=== PATIENT | female | born 1965 | race Two or more races ===

== ENCOUNTER 2021-04-27 14:01 | Outpatient (REF) | payer MEDICARE, MEDICAID, SELFPAY ==
--- NOTE | ~2021-04-27 | MM_ITS ---
EXAMINATION: BONE DENSITOMETRY CLINICAL INDICATION: Menopausal. COMPARISON: None (current study represents initial baseline exam). TECHNIQUE: Using a [employer] DXA System (software version: 13.1) manufactured by [employer], dual-energy x-ray absorptiometry was performed of the lumbar spine and left hip. The images are of good technical quality. Summary results are attached. FINDINGS: AP SPINE L1-L4: BMD 1.013 g/cm2, Z-score -1.0, T-score -1.4, osteopenia. LEFT FEMUR, NECK: BMD 0.924 g/cm2, Z-score -0.1, T-score -0.8, normal. LEFT FEMUR, TOTAL: BMD 0.893 g/cm2, Z-score -0.6, T-score -0.9, normal. IDENTIFIED RISK FACTORS: Menopause, hysterectomy, bilateral oophorectomy, tobacco use (current smoker). HISTORY OF FRACTURE: None listed. MEDICATIONS: None listed. MM/XR DEXA axial skeleton IMPRESSION: 1. DIAGNOSIS: Osteopenia based on the lowest T-score value of -1.4 in the lumbar spine applying World Health Organization criteria. 2. 10-YEAR FRACTURE RISK PREDICTION, FRAX: Major osteoporotic fracture (clinical spine, forearm, hip or shoulder) 3.2%. Hip fracture 0.1%. 3. Treatment Recommendations: NOF guidelines recommend consideration for treatment in postmenopausal women and men age 50 and older presenting with the following: -A hip or vertebral (clinical or morphometric) fracture. -T-score less than or equal to -2.5 at the femoral neck or spine after appropriate evaluation to exclude secondary causes. -Low bone mass at the hip or spine and a 10-year fracture probability by FRAX of greater than or equal to 3% for hip fracture or greater than or equal to 20% for major osteoporotic fracture based on the [place] adapted WHO algorithm. 4. Other Recommendations: All treatment decisions require clinical judgment and consideration of individual patient factors, including patient preferences, comorbidities, previous drug use, risk factors not captured in the FRAX model (e.g. frailty, falls, vitamin D deficiency, increased bone turnover, interval significant decline in bone density) and possible under or overestimation of fracture risk by FRAX. Additional medical evaluation for secondary cause of low bone mineral density may be appropriate. FUTURE SCAN RECOMMENDATION: People with diagnosed cases of osteoporosis or at high risk for fracture should have regular bone mineral density tests. For patients eligible for Medicare, routine testing is allowed once every 2 years. The testing frequency can be increased to one year for patients who have rapidly progressing disease, those who are receiving or discontinuing medical therapy to restore bone mass, or have additional risk factors.
== END 2021-04-27 14:02 | disposition home or self-care (01) ==
LOC: HO.MAMMO 14:01
PROVIDERS: Visit Provider Pediatrics
DX: Z13.820 Encounter for screening for osteoporosis (principal); M85.80 Other specified disorders of bone density and structure, unspecified site; F17.200 Nicotine dependence, unspecified, uncomplicated; Z78.0 Asymptomatic menopausal state; Z90.722 Acquired absence of ovaries, bilateral; Z98.890 Other specified postprocedural states
CPT/HCPCS: 77080

== ENCOUNTER 2024-03-13 10:09 | Outpatient (REF) | payer MEDICARE, MEDICAID, SELFPAY ==
[2024-03-13 13:53] LABS: MANUAL DIFF FLAG NO
[2024-03-13 14:04] LABS: Basophils Percent Auto 0.4 % (0-2); Eosinophils Absolute Auto 0.1 X10*3/uL (0.0-0.4); Eosinophils Percent Auto 1.7 % (0-4); Hematocrit 41.5 % (37.0-47.0); Hemoglobin 13.4 g/dl (12.0-16.0); Imm Gran Abs Auto 0.01 X10*3/uL (0.00-0.03); Imm Gran Pct Auto 0.2 % (0.0-0.4); Lymphocytes Absolute Auto 2.5 X10*3/uL (1.2-4.9); Lymphocytes Percent Auto 53.4 % (20-40); Mean Corpuscular HGB Conc 32.3 g/dl (31.0-35.0); Mean Corpuscular Hemoglobin 29.3 pg (27.0-33.0); Mean Corpuscular Volume 90.6 fL (80.0-98.0); Mean Platelet Volume 10.7 fL (9.4-12.3); Monocytes Absolute Auto 0.5 X10*3/uL (0.1-1.2); Monocytes Percent Auto 10.3 % (2-11); Neutrophils Absolute Auto 1.6 x10*3/uL (2.0-8.3); Platelet Count 241 X10*3/uL (160-400); Red Blood Count 4.58 X10*6/uL (4.20-5.50); White Blood Count 4.6 X10*3/uL (4.8-10.8)
[2024-03-13 14:36] LABS: Alanine Aminotransferase 15 U/L (0-31); Albumin Level 3.9 g/dL (3.5-5.0); Alkaline Phosphatase 72 U/L (39-117); Anion Gap 11 (12-20); Aspartate Amino Transferase 14 U/L (5-31); Bilirubin Direct 0.1 mg/dL (0.0-0.5); Bilirubin Total 0.3 mg/dL (0.0-1.0); Blood Urea Nitrogen 24 mg/dL (9-16); Calcium 9.5 mg/dL (8.4-10.2); Carbon Dioxide 25 mmol/L (22-29); Chloride 108 mmol/L (96-108); Cholesterol 169 mg/dL (<200); Estimated Glomerular Filt Rate > 60; Glucose Fasting 103 mg/dL (60-99); HDL Cholesterol 29 mg/dL (>40); LDL Cholesterol Calculated 115 mg/dL (<100); Potassium 4.2 mmol/L (3.3-5.1); Sodium 140 mmol/L (135-145); TSH reflex Free T4 1.74 uIU/mL (0.32-4.0); Total Protein 7.2 g/dL (6.5-8.0); Triglycerides 129 mg/dL (<150); Vitamin D 25-OH Total 26.5 ng/mL (>30)
[2024-03-13 14:48] LABS: Creatinine Urine 118.76 mg/dL; Microalbum/Creatinine Ratio Ur 9.2 ug/mg cr (<30)
== END 2024-03-13 10:10 | disposition home or self-care (01) ==
LOC: HO.CHCLDS 10:09
PROVIDERS: Visit Provider Pediatrics
DX: E55.9 Vitamin D deficiency, unspecified (principal); L65.9 Nonscarring hair loss, unspecified; I10 Essential (primary) hypertension; Z79.811 Long term (current) use of aromatase inhibitors
CPT/HCPCS: 36415; 80048; 80061; 80076; 82043; 82306; 82570; 84443; 85025

== ENCOUNTER 2025-05-11 10:39 | Outpatient (REF) | payer MEDICARE, MEDICAID, SELFPAY ==
--- OUTSIDE RECORDS SUMMARY | 2025-05-06 14:15 | XMS_ITS | Encounter Summary ---
Author Organization [employer] Address [address] [place] [address] Care Team Providers Care Compressor Station Engineer Chief Name Role Phone Christal Galeana MD Primary Care Provider [phone] Reason for Referral * Consultation (Urgent) - Authorized Specialty Diagnoses / Procedures Referred By Contsaida t Referred To Contact Gastroenterology Diagnoses Carcinoma of colon (CMS/HCC) (HCC) Christal Galeana MD [address] [place] [address] Phone: tel: fax: [facility] [address] [place], [place] Phone: tel: fax: Referral ID Status Reason Start Date Expiration Date Visits Requested Visits Authorized [id number] Authorized Specialty Services Required 05/06/2025 05/06/2026 1 1 Scheduling Instructions [facility] please, treated x colon cancer there in 2009 Encounter Details Date Type Department Care Team (Late st Contact Info) Description 05/06/2025 2:15 PM EDT Office Visit [facility] [address] [place], [place] [phone] Christal Galeana MD [address], [place] [phone] Essential hypertension (Primary Dx); Heart failure with reduced ejection fraction, NYHA class III (CMS/HCC); Malignant neoplasm of right breast in female, estrogen receptor positive, unspecified site of breast (CMS/HCC); Carcinoma of colon (CMS/HCC); Dietary counseling; Exercise counseling; Primary insomnia; Mild intermittent asthma without complication; Encounter for immunization Social History Tobacco Use Types Packs/Day Years Used Date Smoking Tobacco: Every Day Cigarettes 0.3 47.7 Started: 08/12/1977 Passive Smoke Exposure: Current Smokeless Tobacco: Never Tobacco Cessation:Ready to Q uit: Not Asked; Counseling Given: Not Answered Alcohol Use Standard Drinks/Week Comments Not Currently 0 (1 standard drink = 0.6 oz pur e alcohol) Depression Answer Date Recorded Patient Health Questionnaire-9 Score 12 05/06/2025 Patient Health Questionnaire-9 Score 12 05/06/2025 Last PHQ-9: Questionnaire Data Not on file 0 05/06/2025 Housing Stability Answer Date Recorded What is your housing situation today? I have channingrhonda edmondson 05/06/[address] you li ve. Do you have problems with any of the following? None of the above 05/06/2025 Food Insecurity Answer Date Recorded Within the past 12 months, y ou worried that your food would run out before you got money to buy more: Often true 05/06/2025 Within the past 12 months,th e food you bought just didn't last and you didn't have enough money to get more: Often true Transportation Answer Date Recorded In the past 12 months, has l ack of transportation kept you from medical appts, meetings, work or from getting things needed for daily living? No 05/06/2025 Utilities Answer Date Recorded In the past 12 months, has t he electric, gas, oil or water company threatened to shut off services in your home? Yes 05/06/2025 Depression Answer Date Recorded Patient Health Questionnaire-2 Score 4 05/06/2025 Internet Access Answer Date Recorded Internet Access Q1 Yes 05/06/2025 Internet Access Q2 Not on file 05/06/2025 Comments No Sex and Gender Information Value Date Recorded Sex Assigned at Female 06/11/2022 10:35 AM EDT Legal Sex Female 10:35 AM EDT Gender Identity Female 06/11/2022 10:35 AM EDT Sexual Orientation Straight 06/11/2022 10 :35 AM EDT documented as of this encounter Last Filed Vital Signs Vital Sign Reading Time Taken Comments Blood Pressure 100/72 05/06/2025 2:17 PM EDT Pulse 80 05/06/2025 2:17 PM EDT Temperature 36.7 C (98 F) 05/06/2025 2:17 PM EDT Respiratory Rate 20 05/06/2025 2:17 PM EDT Oxygen Saturation - - Inhaled Oxygen Concentration - - Weight 85.7 kg (189 lb) 05/06/2025 2:17 PM EDT Height 158.8 cm (5' 2.5 ) 05/06/2025 2:17 PM EDT Body Mass Index 34.02 05/06/2025 2:17 PM EDT documented in this encounter Functional Status * Over the past 2 weeks, how often have you been bothered by any of the following problems? Question Answer Date of Assessment Author Patient Health Questionnaire -2 Score 4 05/06/2025 2:38 PM EDT Estuardo Crowley MA * Little interest or pleasure in doing things Answer Date of Assessment Author Several days 05/06/2025 2:38 PM EDT Jamaica Crowley [place] * Feeling down, depressed, or hopeless Answer Date of Assessment Author Nearly every day 05/06/2025 2:38 PM EDT Jamaica Mcclellan [place] * Trouble falling or staying asleep, or sleeping too much Answer Date of Assessment Author Nearly every day 05/06/2025 2:38 PM EDT Jamaica Mcclellan [place] * Feeling tired or having little energy Answer Date of Assessment Author Nearly every day 05/06/2025 2:38 PM EDT Jamaica Mcclellan MA * Poor appetite or overeating Answer Date of Assessment Author Several days 05/06/2025 2:38 PM EDT Jamaica Crowley MA * Feeling bad about yourself - or that you are a failure or have let yourself or your family down Answer Date of Assessment Author Several days 05/06/2025 2:38 PM EDT Jamaica Crowley MA * Trouble concentrating on things, such as reading the newspaper or watching television Answer Date of Assessment Author Not at all 05/06/2025 2:38 PM EDT Jamaica Crowley MA * Moving or speaking so slowly that other people could have noticed? Or the opposite - being so fidgety or restless that you have been moving around a lot more than usual. Answer Date of Assessment Author Not at all 05/06/2025 2:38 PM EDT Jamaica Crowley MA * Thoughts that you would be better off or hurting yourself in some way Answer Date of Assessment Author Not at all 05/06/2025 2:38 PM EDT Jamaica Crowley MA * Patient Health Questionnaire-9 Score Answer Date of Assessment Author 12 05/06/2025 2:38 PM EDT Jamaica Crowley MA * How difficult have these problems made it for you to do your work, take care of things at home, or get along with other people? Answer Date of Assessment Author Somewhat difficult 05/06/2025 2:38 PM EDT Jamaica Treviño MA documented as of this encounter Progress Notes * Christal Galeana MD - 05/06/2025 2:15 PM EDT Subjective Patient ID: Gaby Felix is a 60 y.o. female who presents for reconnection to care. Gaby is a 60 y/o female patient of ours with past history of colon and breast cancer both treated and in remission. She is here for recommendation to care. She has been seeing orthopedics for multiple complaints of shoulders and knee arthralgias. Has no other complaints today. She is overdue for fasting labs. She still smokes tobacco but is interested in quitting. Review of Systems Constitutional: Negative for activity change, chills, fever and unexpected weight change. Respiratory: Negative for cough, shortness of breath and wheezing. Cardiovascular: Negative for chest pain, palpitations and leg swelling. Gastrointestinal: Negative for abdominal pain and blood in stool. Endocrine: Negative for polydipsia and polyuria. Genitourinary: Negative for decreased urine volume, difficulty urinating, dysuria and hematuria. Musculoskeletal: Negative for arthralgias and gait problem. Skin: Negative for color change and rash. Neurological: Negative for dizziness and headaches. Hematological: Negative for adenopathy. Psychiatric/Behavioral: Negative for dysphoric mood, hallucinations, sleep disturbance and suicidalideas. The patient is not nervous/anxious. Objective BP 100/72 (BP Location: Left arm, Patient Position: Sitting, BP Cuff Size: Adult) Pulse80 Temp 98 ??F (36.7 ??C) (Oral) Resp 20 Ht 5' 2.5 (1.588 m) Wt 189 lb (85.7 kg) LMP (LMP Unknown) BMI 34.02 kg/m?? Physical Exam Vitals reviewed. Constitutional: Appearance: Normal appearance. She is not ill-appearing. HENT: Mouth/Throat: Mouth: Mucous membranes are moist. Eyes: Conjunctiva/sclera: Conjunctivae normal. Pupils: Pupils are equal, round, and reactive to light. Cardiovascular: Rate and Rhythm: Normal rate and regular rhythm. Heart sounds: Normal heart sounds. Pulmonary: Effort: Pulmonary effort is normal. Breath sounds: Normal breath sounds. Abdominal: Tenderness: There is no abdominal tenderness. Musculoskeletal: Right lower leg: No edema. Left lower leg: No edema. Neurological: Mental Status: She is alert and oriented to person, place, and time. Mental status is at baseline. Psychiatric: Mood and Affect: Mood normal. Behavior: Behavior normal. Thought Content: Thought content normal. Judgment: Judgment normal. Assessment/Plan Diagnoses and all orders for this visit: Essential hypertension Comments: BP very well-controlled on meds prescribed by cardiology. Follow-up yearly as planned. No changes done today patient congratulated. Orders: - Albumin, Random Urine W/Creatinine; Future - CBC auto differential; Future - Basic Metabolic Panel, Fasting; Future - Hepatic Function Panel; Future - Vitamin D, 25-Hydroxy, Total, Immunoassay; Future - TSH W/Reflex to FT4; Future - Lipid Panel, Standard; Future - Vitamin B12/Folate, Serum Panel; Future Heart failure with reduced ejection fraction, NYHA class III (CMS/HCC) Comments: Patient echocardiogram is up-to-date sees cardiology at least once a year if not every 6 months. Orders: - Albumin, Random Urine W/Creatinine; Future - CBC auto differential; Future - Basic Metabolic Panel, Fasting; Future - Hepatic Function Panel; Future - Vitamin D, 25-Hydroxy, Total, Immunoassay; Future - TSH W/Reflex to FT4; Future - Lipid Panel, Standard; Future - Vitamin B12/Folate, Serum Panel; Future Malignant neoplasm of right breast in female, estrogen receptor positive, unspecified site of breast (CMS/HCC) Comments: Patient still on tamoxifen and followed at [facility] oncology. In remission. No imaging study neededfor screening due to mastectomy history. Orders: - Albumin, Random Urine W/Creatinine; Future - CBC auto differential; Future - Basic Metabolic Panel, Fasting; Future - Hepatic Function Panel; Future - Vitamin D, 25-Hydroxy, Total, Immunoassay; Future - TSH W/Reflex to FT4; Future - Lipid Panel, Standard; Future - Vitamin B12/Folate, Serum Panel; Future Carcinoma of colon (CMS/HCC) Comments: Patient has GI follow-up coming up. She is up-to-date with colonoscopy due to her colon cancer history. Orders: - Albumin, Random Urine W/Creatinine; Future - CBC auto differential; Future - Basic Metabolic Panel, Fasting; Future - Hepatic Function Panel; Future - Vitamin D, 25-Hydroxy, Total, Immunoassay; Future - TSH W/Reflex to FT4; Future - Lipid Panel, Standard; Future - Vitamin B12/Folate, Serum Panel; Future - Referral to Gastroenterology; Future Dietary counseling Exercise counseling Primary insomnia Mild intermittent asthma without complication Comments: Refilled her asthma meds. Patient still smokes tobacco. Agrees to try Chantix generic follow-up in 3 months with me given. Orders: - albuterol 108 (90 Base) MCG/ACT inhaler; Inhale 2 puffs every 4 (four) hours if needed for wheezing. Encounter for immunization Comments: PCV 20 vaccine given today declined flu vaccine. Orders: - PCV-20 VACCINE 6 wks + Other orders - varenicline (Chantix) 1 MG tablet; Take 0.5 tablets (0.5 mg) by mouth 2 times daily. - traZODone (Desyrel) 50 MG tablet; Take 1 tablet (50 mg) by mouth at bedtime. documented in this encounter Plan of Treatment Upcoming Encounters Date Type Department Care Team (Late st Contact Info) Description 06/02/2025 9:30 AM EDT Office Visit [facility] [address] [place] [address] Adam Weiss Scheduled Orders Name Type Priority Associated Diagnoses Orde r Schedule Albumin, Random Urine W/Creatinine Lab Routine Essential hypertension Heart failure with reduced ejection fraction, NYHA class III (CMS/HCC) Malignant neoplasm of right breast in female, estrogen receptor positive, unspecified site of breast (CMS/HCC) Carcinoma of colon (CMS/HCC) Expected: 05/06/2025 (Approximate), Expires: 05/06/2026 CBC auto differential Lab Routine Essential hypertension Heart failure with reduced ejection fraction, NYHA class III (CMS/HCC) Malignant neoplasm of right breast in female, estrogen receptor positive, unspecified site of breast (CMS/HCC) Carcinoma of colon (CMS/HCC) Expected: 05/06/2025 (Approximate), Expires: 05/06/2026 Basic Metabolic Panel, Fasting Lab Routine Essential hypertension Heart failure with reduced ejection fraction, NYHA class III (CMS/HCC) Malignant neoplasm of right breast in female, estrogen receptor positive, unspecified site of breast (CMS/HCC) Carcinoma of colon (CMS/HCC) Expected: 05/06/2025 (Approximate), Expires: 05/06/2026 Hepatic Function Panel Lab Routine Essential hypertension Heart failure with reduced ejection fraction, NYHA class III (CMS/HCC) Malignant neoplasm of right breast in female, estrogen receptor positive, unspecified site of breast (CMS/HCC) Carcinoma of colon (CMS/HCC) Expected: 05/06/2025 (Approximate), Expires: 05/06/2026 Vitamin D, 25-Hydroxy, Total, Immunoassay Lab Routine Essential hypertension Heart failure with reduced ejection fraction, NYHA class III (CMS/HCC) Malignant neoplasm of right breast in female, estrogen receptor positive, unspecified site of breast (CMS/HCC) Carcinoma of colon (CMS/HCC) Expected: 05/06/2025 (Approximate), Expires: 05/06/2026 TSH W/Reflex to FT4 Lab Routine Essential hypertension Heart failure with reduced ejection fraction, NYHA class III (CMS/HCC) Malignant neoplasm of right breast in female, estrogen receptor positive, unspecified site of breast (CMS/HCC) Carcinoma of colon (CMS/HCC) Expected: 05/06/2025 (Approximate), Expires: 05/06/2026 Lipid Panel, Standard Lab Routine Essential hypertension Heart failure with reduced ejection fraction, NYHA class III (CMS/HCC) Malignant neoplasm of right breast in female, estrogen receptor positive, unspecified site of breast (CMS/HCC) Carcinoma of colon (CMS/HCC) Expected: 05/06/2025 (Approximate), Expires: 05/06/2026 Vitamin B12/Folate, Serum Panel Lab Routine Essential hypertension Heart failure with reduced ejection fraction, NYHA class III (CMS/HCC) Malignant neoplasm of right breast in female, estrogen receptor positive, unspecified site of breast (CMS/HCC) Carcinoma of colon (CMS/HCC) Expected: 05/06/2025, Expires: 05/06/2026 Scheduled Referrals Name Type Priority Associated Diagnoses Order Schedule Referral to Gastroenterology Outpatient Referral Urgent Carcinoma of colon (CMS/HCC) Expected: 05/06/2025 (Approximate), Expires: 05/06/2026 documented as of this encounter Visit Diagnoses Diagnosis Essential hypertension- Primary Unspecified essential hypertension Heart failure with reduced ejection fraction, NYHA class III (HCC) Malignant neoplasm of right breast in female, estrogen receptor positive, unspecified site of breast (CMS/HCC) (HCC) Carcinoma of colon (CMS/HCC) (HCC) Malignant neoplasm of colon, unspecified site Dietary counseling Dietary surveillance and counseling Exercise counseling Primary insomnia Persistent disorder of initiating or maintaining sleep Mild intermittent asthma without complication Encounter for immunization documented in this encounter Additional Health Concerns Assessment Noted Time PHQ-9 Depression Total Score: 12 025 2:38 PM EDT documented as of this encounter Care Teams Compressor Station Engineer Chief Relationship Specialty Start Date End Date Christal Galeana MD [address] [place] [id number] PCP - General Family Medicine 02/16/21 documented as of this encounter
--- OUTSIDE RECORDS SUMMARY | 2025-05-10 09:45 | XMS_ITS | Encounter Summary ---
Author Organization [facility] Address [address] [place] [address] Care Team Providers Care Business Intelligence Reporting Analyst Name Role Phone Jonas Miller MD Primary Care Provider [phone] Reason for Referral * Orthopedic (Routine) - Authorized Specialty Diagnoses / Procedures Referred By [place] hunt Referred To Contact Orthopedic Surgery / Orthopaedic Surgery Diagnoses Nontraumatic incomplete tear of left rotator cuff Procedures L Inj/Asp: L subacromial bursa Oscar Rowland MD [address] [place] [address] Phone: tel: fax: Referral ID Status Reason Start Date Expiration Date V isits Requested Visits Authorized [id number] Authorized 05/10/2025 05/10/2026 1 1 Reason for Visit * Reason Comments Follow-up Left shoulder pain Encounter Details Date Type Department Care Team (Latest Contact Info) Description 05/10/2025 9:45 AM EDT Office Visit Orthopedic Surgery - [place] [id number] [phone] Oscar Rowland MD [address] [place] [address] Nontraumatic incomplete tear of left rotator cuff (Primary Dx) Social History Tobacco Use Types Packs/Day Years Used Date Smoking Tobacco: Never Assessed Comments Unknown Sex and Gender Information Value Date Recorded Sex Assigned at Not on file Legal Sex Female 9:01 AM EST Gender Identity Not on file Sexual Orientation Not on file documented as of this encounter Ordered Prescriptions Prescription Sig Dispense Quantity Refills Last Filled Start Date End Date diclofenac (VOLTAREN) 75 mg EC tablet Take 1 tablet (75 mg total) by mouth 2 (two) times a day. Do not crush, chew, or split. 60 each 11 05/10/2025 05/10/2026 documented in this encounter Progress Notes * Oscar Rowland MD - 05/10/2025 9:45 AM EDTAssociated Order(s): L Inj/Asp: L subacromial bursa Post-Procedure Diagnose(s): Nontraumatic incomplete tear of left rotator cuff Date: May 10, 2025 Diagnosis: Left partial rotator cuff tear diagnosed in 2019 Last seen: 12/21/24 (underwent subacromial CSI) Declined chemical engineering intern, daughter assists in translation History of Present Illness The patient is a 60-year-old female RHD who presents for a follow-up regarding her left shoulder pain. She has been receiving injections for her left shoulder pain, which typically provide relief for approximately a year. However, the injection she received in 12/2024 did not alleviate her pain. She has been undergoing physical therapy, but it has only provided temporary relief. Her shoulder function is currently at 25% of its normal capacity, and she avoids moving it excessively due to the pain. She has been using patches and sprays for pain management, but these have not been effective. She does not take ibuprofen, Tylenol, or Aleve due to her existing medication regimen. She is interested in trying Aleve and is considering another injection to manage her pain. She is also contemplating res uming diclofenac or Voltaren, as they have been beneficial in the past. She experiences a cracking sensation when she moves her arm. She recalls a fall from her childhood that did not result in a fracture, but she has been able to crack her joints since then. She is supposed to be doing therapy for her knee pain. Left shoulder SANE score is 25 Objective Focused Exam: LUE AROM FF/abduction/ER/IR: 150/100/45/Ilium PROM FF 170 weak with 4+/5 rotator cuff strength testing with resisted ER at 0 degrees of abduction Supraspinatus: positive Domenica's Test Subscapularis: negative Belly Press Impingement: positive Neer's Test positive Hawkin's Test AC Joint: no TTP Biceps: negative Yergason's test Imaging: No new imaging MRI of the left shoulder obtained 06/04/2020 demonstrated a partial-thickness articular sided supraspinatus tear no full-thickness rotator cuff tear, biceps tendon is within the bicipital groove and no significant degenerative changes, there are cystic changes in the humeral head at the level of the 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 Unfortunately she did not have a significant response to her previous subacromial corticosteroid injection and physical therapy. Thispreviously did improve her symptoms for longer periods of time.. I again discussed her diagnosis ofa partial rotator cuff tearing from MRIs in 2019 and I discussed that she may have had progression of this tear. I again reviewed operative and nonoperative treatment. Nonop treatment involves symptomatic management with nonsteroidal anti- inflammatory medication physical therapy. This may be associate with the risk for progression of a tear and persistent or worsening symptoms with shoulder pain and weakness.. I also discussed risk and benefits of corticosteroid i njections. Corticosteroid injections reduce inflammation and improve symptoms but do not heal rotator cuff tear and can have a likely time and dose-dependent effect on increasing complications such as infection and retear of the rotator cuff if given before rotator cuff repair rotator cuff. I explained to her operative treatment would involve likely arthroscopy and repair, would have the benefit of restoring her rotator cuff insertion but has the risks of surgery and extensive postoperative recovery, and may have risk of a retear. I explained I would recommend an updated MRI for her if we were to consider operative treatment. She voiced understanding of her diagnosis and the risks and benefits of operative and nonoperative treatment. Says she is not interested in surgery I would like to have continued trial of nonoperative treatment. She elected undergo repeat subacromial corticosteroidinjection, I also prescribed her diclofenac which had helped her symptoms previously. She can follow-up as needed for new worsening or persistent symptoms. Plan: Left shoulder partial rotator cuff tear with persistent pain - Repeat subacromial corticosteroid injection - May continue with physical therapy with rotator cuff strengthening - Follow-up as needed for any worsening or persistent symptoms L Inj/Asp: L subacromial bursa Indications: pain Details: 22 G needle, posterior approach Medications: 40 mg triamcinolone acetonide 40 mg/mL Outcome: tolerated well, no immediate complications Site was prepped in standard fashion using alcohol swab, sterile technique was used to perform the injection, the patient tolerated the procedure well and a band-aid dressing was applied Informed Consent: Site: Left subacromial Laterality: Left Relevant images/test results available and reviewed: yes Health status cleared: Yes Procedure/treatment, purpose, treatment alternatives, risks/potential complications and benefits explained: yes Risk/complications/benefits details: Risk/complications/benefits details: Risks and benefits of corticosteroid injection were discussed, including risk of pain, bleeding, infection, tissue attenuation, tendon rupture, changes in skin color, and injury to surrounding structures such as arteries, veins and nerves. We also discussed the patient may develop worsening pain for a few days before having improvement in their symptoms. Patient questions answered: yes Patient agrees, verbalizes understanding, and wants to proceed: yes Consent given by: Patient Informed consent discussion completed by Physician/VICKIE with patient: Verbal Pre-procedure timeout performed: yes I have obtained verbal consent from Gaby Luana prior to the recording. I have advised Gaby Randolphsallo that she may refuse the recording and require the recording to be turned off at any time. Oscar Rowland MD documented in this encounter Plan of Treatment Not on file documented as of this encounter Goals Goal Patient Goal Type Associated Problems Recent Progress Patient-Stated? Author OT goals 6 visits General On track( 025 2:20 PM EDT) No Margarita Lowe OT Note: 1> Pt will demo L shldr horiz add at least 20 to reach R axilla when bathing 01/19/25 Met 2. Pt will demo L granite polisher strength to at least 30# (vs 23# init, vs 50# on R) 02/15/25 MET 3. Pt will return demo approp HEP w/ progressions 02/15/25 MET 4> Pt will trial bed positioing techniques to lessen reports of RUE pain in supine bed 01/19/25 Met documented as of this encounter Procedures Procedure Name Priority Date/Time Associated Diagnosis Comments IA ARTHROCENTESIS/ASPI RATION/INJECTION MAJOR JOINT/BURSA W/O U/S GUIDANCE Routine 05/10/2025 9:45 AM EDT Nontraumatic incomplete tear of left rotator cuff documented in this encounter Results * IA ARTHROCENTESIS/ASPIRATION/INJECTION MAJOR JOINT/BURSA W/O U/S GUIDANCE (05/10/2025 9:45 AM EDT) Oscar Branham MD - 05/10/2025 9:45 AM EDT Oscar Rowland MD 05/10/2025 1:25 PM L Inj/Asp: L subacromial bursa Indications: pain Details: 22 G needle, posterior approach Medications: 40 mg triamcinolone acetonide 40 mg/mL Outcome: tolerated well, no immediate complications Site was prepped in standard fashion using alcohol swab, sterile technique was used to perform the injection, the patient tolerated the procedure well and a band-aid dressing was applied Informed Consent: Site: Left subacromial Laterality: Left Relevant images/test results available and reviewed: yes Health status cleared: Yes Procedure/treatment, purpose, treatment alternatives, risks/potential complications and benefits explained: yes Risk/complications/benefits details: Risk/complications/benefits details: Risks and benefits of corticosteroid injection were discussed, including risk of pain, bleeding, infection, tissue attenuation, tendon rupture, changes in skin color, and injury to surrounding structures such as arteries, veins and nerves. We also discussed the patient may develop worsening pain for a few days before having improvement in their symptoms. Patient questions answered: yes Patient agrees, verbalizes understanding, and wants to proceed: yes Consent given by: Patient Informed consent discussion completed by Physician/VICKIE with patient: Verbal Pre-procedure timeout performed: yes us Oscar Rowland MD IN CLINIC/BEDSIDE ORDERABLES Fin al Result documented in this encounter Visit Diagnoses Diagnosis Nontraumatic incomplete tear of left rotator cuff- Primary documented in this encounter Administered Medications Inactive Administered Medications - up to 3 most recent administrations Medication Order MAR Action Action Date Dose Rate Site triamcinolone acetonide (KENALOG-40) 40 mg/mL injection 40 mg 40 mg, Once PRN Procedure, Starting on Sat05/10/25 at 0945, For 1 doseIndications:Nontraumatic incomplete tear of left rotator cuff Given 05/10/2025 9:45 AM EDT 40 mg documented in this encounter Discontinued Medications Medication Sig Discontinue Reason Start Date End Da te diclofenac (VOLTAREN) 75 mg EC tablet TAKE 1 TABLET BY MOUTH TWICE DAILY FOR 14 DAYS. STOP IF ANY NAUSEA, VOMITING, UPSET STOMACH, CONSTIPTAION OR DIARRHEA AND NOTIFY OFFICE 05/26/2024 05/10/2025 documented as of this encounter Care Teams Business Intelligence Reporting Analyst Relationship Specialty Start Date End Date Jonas Miller MD [address] [address] PCP - General Internal Medicine 12/24/18 documented as of this encounter
--- OUTSIDE RECORDS SUMMARY | 2025-05-11 11:58 | XMS_ITS | Encounter Summary ---
Author Organization [facility] [employer] Address [address] [place] [address] [place] [address] Care Team Providers Care Denture Waxer Name Role Phone Christal Galeana MD Primary Care Provider [phone] Reason for Visit * Reason Onset Date Comments Nurse Triage 01/22/2023 Encounter Details Date Type Department Care Team ([facility] st Contact Info) Description 01/22/2023 Telephone [facility] MED [facility] PEDS [address] [place], [place] [phone] Christal Galeana MD [address] [place] [address] Nurse Triage Social History Tobacco Use Types Packs/Day Years Used Date Smoking Tobacco: Never Assessed Comments Unknown Sex and Gender Information Value Date Recorded Sex Assigned at Female 06/11/2022 10:35 AM EDT Legal Sex Female 10:35 AM EDT Gender Identity Female 06/11/2022 10:35 AM EDT Sexual Orientation Straight 06/11/2022 10 :35 AM EDT documented as of this encounter Miscellaneous Notes * Telephone Encounter - Keri Haney RN - 01/22/2023 3:19 PM EDT Triage call Pt reports hair loss over last few months. Pt reports bald patch on left side of head. Pt reports hair falls out when washing and brushing it. Pt does not wear tight hair style and Pt hasnot had Covid recently. Pt requests to see PCP. Apt 01/31 @ 1100am. Insurance is verified as active prior to booking. Protocol Used: Hair Loss Protocol-Based Disposition: See in Office or Video Visit within 2 Weeks Video visit not offered Positive Triage Question: * Hair loss is a chronic problem * All higher-acuity triage questions were negative * Telephone Encounter - Ankita Cruz - 01/22/2023 2:59 PM EDT Symptom: Hair Loss Outcome: Schedule an appointment to be seen within 24 hours Reason: This is the only possible outcome for this symptom The caller accepted this outcome documented in this encounter Plan of Treatment Upcoming Encounters Date Type Department Care Team (Late st Contact Info) Description 06/02/2025 9:30 AM EDT Office Visit [facility] [address] [place] [address] Adam Weiss documented as of this encounter Visit Diagnoses Not on filedocumented in this encounter Care Teams Denture Waxer Relationship Specialty Start Date End Date Christal Galeana MD [address] [place] [address] PCP - General Family Medicine 02/16/21 documented as of this encounter
--- OUTSIDE RECORDS SUMMARY | 2025-05-11 11:58 | XMS_ITS | Clinical Summary ---
Author Organization [facility] Address [address] [place] [address] Care Team Providers Care Software Sales Manager Name Role Phone Christal Galeana Primary Care Provider [phone] Allergies No known active allergies Medications carvediloL (COREG) 12.5 mg tablet Take 12.5 mg by mouth. 08/07/2023 Active diclofenac (VOLTAREN) 75 mg EC tablet Take 75 mg by mouth. 06/24/2024 Active magnesium oxide 400 mg magnesium capsule Take 1 capsule orally qhs 2024 Active Entresto 97-103 mg Take 1 tablet by mouth. 08/07/2023 Active spironolactone (ALDACTONE) 25 mg tablet Take 1 tab orally daily 08/07/2023 Active tamoxifen (NOLVADEX) 20 mg tablet Take 1 tablet by mouth. 03/25/2024 Active melatonin 3 mg tablet Take 5 mg by mouth nightly. 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 Wing Dickey, Heart Failure Specialist on August 23, 2018. She was lost to follow up. At that time she was found to have dilated cardiomyopathy likely 2/2 to Herceptin. LVEF 15%. At that time Dr. Dickey had started Ramipril, Lasix and spironolactone. 2017- ECHO showing mild LV dilation which was new at 6 cm, LVEF 15% with evidence of akinesis of the basal and septal wall segments. All the other segments were hypokinetic. - Sees cardiology q3 months. - 06/2019 Plan from cardiology note: LVEF 15%. 1. cMRI pending 2. Uptitration of carvedilol limited by low HR Breast cancer, right breast 08/21/2016 Overview (07/13/2024): H/o right 6 mm infiltrating ductal carcinoma in 2011 which was grade 1. s/p excision 02/2012 and nodes were negative followed by adjuvant chemo x 4 cycles along with post-op radiation. 05/2016 found to have new infiltrating ductal carcinoma of right breast. The plan is to have bilateral mastectomy done with Dr. Le 09/2016 - 09/25/2016- bilat Mastectomy - clinically stable. Followed every 6 months. Family History Medical History Relation Name Comments Heart disease Father Relation Name Status Comments Father Mother Alive Social History Tobacco Use Types Packs/Day Years Used Date Smoking Tobacco: Every Day Cigarettes Smokeless Tobacco: Never Tobacco Cessation:Ready to Q uit: Not Asked; Counseling Given: Not Answered Alcohol Use Standard Drinks/Week Comments Not Currently 0 (1 standard drink = 0.6 oz pur e alcohol) Comments Unknown Sex and Gender Information Value Date Recorded Sex Assigned at Not on file Legal Sex Female 1:34 PM EDT Gender Identity Not on file Sexual Orientation Not on file Occupation Industry Job Start Date Job End Date does not work Not on file Not on file Not on file Last Filed Vital Signs Vital Sign Reading Time Taken Comments Blood Pressure - - Pulse - - Temperature - - Respiratory Rate - - Oxygen Saturation - - Inhaled Oxygen Concentration - - Weight 89.4 kg (197 lb) 07/13/2024 2:22 PM EST Height 159 cm (5' 2.6 ) 07/13/2024 2:22 PM EST Body Mass Index 35.35 07/13/2024 2:22 PM EST Plan of Treatment Health Maintenance Due Date Last Done Comments Cervical Cancer Screening 1964 Cologuard 1965 Colonoscopy 1965 HIV Screening 1965 HPV and Pap Smear 1965 Hepatitis C Screening 1965 Pap Smear 1965 Medicare AWV 02/26/1965 COVID-19 Vaccine (#1) 02/26/1969 Zoster Vaccines (1 of 2) 02/26/1983 CT Lung Cancer Screening (Baseline) 02/26/2014 Pneumococcal Vaccine: 50+ Ye ars (2 of 2 - PCV) 08/30/2018 08/30/2017 FOBT / Fit Test 07/11/2022 07/11/2021 Alcohol/Substance Use Screening 08/12/2024 Depression Screening and Follow-Up 08/12/2024 Social Drivers of Health Reyna ual Screening 08/12/2024 Basic Metabolic Panel 03/13/2025 03/13/2024 Influenza Vaccine (#1) 2025 Colon Cancer Screening 07/11/2026 Sigmoidoscopy 07/11/2026 07/11/2021 DTaP,Tdap,and Td Vaccines (2 - Td or Tdap) 01/24/2027 01/24/2017 Diabetes Screening 03/13/2027 03/13/2024 RSV Vaccine (60+ years old a nd patients) (1 - 1-dose 75+ series) 02/26/2039 Hepatitis B Vaccines Aged Out No long er eligible based on patient's age to complete this topic Insurance #[address] [place] [address] MEDICARE [facility] Care Teams Software Sales Manager Relationship Specialty Start Date End Date Christal Galeana [address] [place] [address] PCP - General Internal Medicine 05/22/24
--- OUTSIDE RECORDS SUMMARY | 2025-05-11 11:58 | XMS_ITS | Clinical Summary ---
Author Organization [facility] Address [address] [place] [address] Care Team Providers Care Core Sticker Name Role Phone Unavailable Primary Care Provider Unavailabl e Source Comments PLEASE NOTE, if this patient is a minor, it may be UNLAWFUL to discuss sensitive information that is contained in these records (such as FAMILY PLANNING, MENTAL HEALTH or SUBSTANCE ABUSE) with the minor patient's parent or other person without the patient's specific authorization.[facility] Allergies No known active allergies Medications spironolactone (ALDACTONE) 25 mg tabletIndications :Essential hypertension TAKE 1/2 TABLET BY MOUTH DAILY 45 Tab 9 Active ENTRESTO 97-103 mg tab 9 Active anastrozole (ARIMIDEX) 1 mg tablet 9 Active carvedilol (COREG) 12.5 mg tablet 9 Active traZODone (DESYREL) 50 mg tabletIndications :Sleeping difficulty TAKE 1 TABLET BY MOUTH EVERY NIGHT AT BEDTIME 90 Tab 0 Active amoxicillin-pot clavulanate (AUGMENTIN) 875-125 mg per tabletIndications :Acute otitis media, right Take 1 Tablet by mouth 2 (two) times daily 20 Tablet 0 Active acetaminophen (TYLENOL 8 HOUR) 650 mg CR tabletIndications :Acute otitis media, right,Acute actinic otitis externa of right ear Take 1 Tablet by mouth every 8 (eight) hours as needed for pain 90 Tablet 0 Active ciprofloxacin-dex amethasone (CIPRODEX) 0.3-0.1 % otic suspensionIndicat ions:Acute otitis media, right Place 3 Drops into the right ear 2 (two) times daily 7.5 mL 0 Active melatonin 5 mg tabIndications:Sl eep disturbances Take 1-2 Tablets by mouth every evening 60 Tablet 2 1 Active Active Problems Problem Noted Date Diagnosed Date Prediabetes 07/22/2019 Heart failure with reduced e jection fraction, NYHA class III 12/31/2018 Overview (08/11/2019): Patient saw Dr. Wing Dickey, Heart Failure [...] Uptitration of carvedilol limited by low HR Essential hypertension 12/31/2018 History of colon cancer, stage II 08/21/2016 Overview (08/11/2019): based on the documentation by Dr. 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 - followed by oncology every 6 months. - 05/2019; GI scheduled colonoscopy + endoscopy. Breast cancer, right breast 08/21/2016 Overview (08/10/2019): H/o right 6 mm infiltrating ductal carcinoma [...] - clinically stable. Followed every 6 months. Immunizations Immunization Administration Dates Next Due TDAP 01/23/2017 Social History Tobacco Use Types Packs/Day Years Used Date Smoking Tobacco: Every Day Cigarettes Smokeless Tobacco: Never Tobacco Cessation:Ready to Q uit: Yes; Counseling Given: Yes Alcohol Use Standard Drinks/Week Comments Yes 0 (1 standard drink = 0.6 oz pur e alcohol) social Social Connections Answer Date Recorded Social Connections and Isolation 0 04/05/2019 Financial Resource Strain Answer Date R ecorded Financial Resource Strain 0 2018 Stress Answer Date Recorded Stress 0 04/05/2019 Physical Activity Answer Date Recorded Physical Activity 0 04/05/2019 Food Insecurity Answer Date Recorded Food 0 04/05/2019 Transportation Needs Answer Date Record ed Transportation 0 04/05/2019 Housing Stability Answer Date Recorded Housing 0 04/05/2019 Safety and Environment Answer Date Brian rded Safety 0 04/05/2019 Utilities Answer Date Recorded Utilities 0 04/05/2019 Employment Answer Date Recorded Employment 0 04/05/2019 Comments No Sex and Gender Information Value Date Recorded Sex Assigned at Female 12/31/2018 11:59 AM PDT Legal Sex Female 9:15 AM PDT Gender Identity Female 12/31/2018 11:59 AM PDT Sexual Orientation Straight 12/31/2018 11 :59 AM PDT Occupation Industry 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
--- OUTSIDE RECORDS SUMMARY | 2025-05-11 11:58 | XMS_ITS | Encounter Summary ---
Author Organization [employer] Address [address] [place] [address] Care Team Providers Care Health Evaluator Name Role Phone Christal Galeana MD Primary Care Provider [phone] Encounter Details Date Type Department Care Team (Latest Contact Info) Description 12/22/2018 Abstract [facility] CONVERSION[facility] Dental, Provider, DDS Social History Tobacco Use Types Packs/Day Years Used Date Smoking Tobacco: Never Assessed Comments Unknown Sex and Gender Information Value Date Recorded Sex Assigned at Female 06/11/2022 10:35 AM EDT Legal Sex Female 10:35 AM EDT Gender Identity Female 06/11/2022 10:35 AM EDT Sexual Orientation Straight 06/11/2022 10 :35 AM EDT documented as of this encounter Plan of Treatment Upcoming Encounters Date Type Department Care Team ( st Contact Info) Description 06/02/2025 9:30 AM EDT Office Visit [facility] [address] [place] [address] Adam Weiss documented as of this encounter Visit Diagnoses Not on filedocumented in this encounter Care Teams Health Evaluator Relationship Specialty Start Date End Date Christal Galeana MD [address] [place] [address] PCP - General Family Medicine 02/16/21 documented as of this encounter
--- OUTSIDE RECORDS SUMMARY | 2025-05-11 11:58 | XMS_ITS | Encounter Summary ---
Author Organization [employer] Address [address] [facility] 7t [place] [address] Care Team Providers Care Timber Deadener Name Role Phone Christal Galeana MD Primary Care Provider [phone] Encounter Details Date Type Department Care Team (Latest Contact Info) Description 05/06/2025 Travel Social History Tobacco Use Types Packs/Day Years Used Date Smoking Tobacco: Every Day Cigarettes 0.3 47.7 Started: [birth year]/12/1977 Passive Smoke Exposure: Current Smokeless Tobacco: Never Alcohol Use Standard Drinks/Week Comments Not Currently 0 (1 standard drink = 0.6 oz pur e alcohol) Depression Answer Date Recorded Patient Health Questionnaire-9 Score 12 05/06/2025 Patient Health Questionnaire-9 Score 12 05/06/2025 Last PHQ-9: Questionnaire Data Not on file 0 05/06/2025 Housing Stability Answer Date Recorded What is your housing situation today? I have channing debo 05/06/[address] you li [...] AM EDT documented as of this encounter Functional Status * Over the [...] Assessment Author Several days 05/06/2025 2:38 PM SH[place]PAT [place] * Trouble concentrating on [...] Treviño [place] documented as of this encounter Plan of Treatment Upcoming Encounters Date Type Department Care Team (Late st Contact Info) Description 06/02/2025 9:30 AM EDT Office Visit [facility] AD[facility] [address] [place] [address] Adam Weiss documented as of this encounter Visit Diagnoses Not on filedocumented in this encounter Additional Health Concerns Assessment Noted Time PHQ-9 Depression Total Score: 12 025 2:38 PM EDT documented as of this encounter Care Teams Timber Deadener Relationship Specialty Start Date End Date Christal Galeana MD [address] [place] [address] PCP - General Family Medicine 02/16/21 documented as of this encounter
--- OUTSIDE RECORDS SUMMARY | 2025-05-11 11:58 | XMS_ITS | Clinical Summary ---
Author Organization [address] [place] [address] [place] [phone] Phone Care Team Providers Care Mac Operator Name Role Phone Jonas Miller MD Primary Care Provider [phone] Allergies No known active allergies Medications acetaminophen (TYLENOL) 325 mg capsule Take by mouth. Acti ve spironolactone (ALDACTONE) 100 mg tablet Take 1 tablet (100 mg total) by mouth 1 (one) time each day. Active sacubitriL-kranthi sartan (Entresto) 24-26 mg per tablet Take by mouth. Activ e carvediloL (COREG) 12.5 mg tablet 07/21/20 24 Active melatonin 5 mg tablet Take 1 tablet (5 mg total) by mouth at bedtime as needed. 02/01/20 23 Active eplerenone (INSPRA) 25 mg tablet Take 1 tablet (25 mg total) by mouth 1 (one) time each day. 09/15/19 25 026 Active tamoxifen (NOLVADEX) 20 mg chemo tablet Take 1 tablet (20 mg total) by mouth 1 (one) time each day 11/14/19 23 Active cholecalcifero l (VITAMIN D-3) 125 mcg (5,000 unit) capsule Take 125 mcg by mouth daily. 03/16/20 24 Active diclofenac (VOLTAREN) 75 mg EC tablet Take 1 tablet (75 mg total) by mouth 2 (two) times a day. Do not crush, chew, or split. 60 each 11 05/10/20 25 026 Active diclofenac (VOLTAREN) 75 mg EC tablet TAKE 1 TABLET BY MOUTH TWICE DAILY FOR 14 DAYS. STOP IF ANY NAUSEA, VOMITING, UPSET STOMACH, CONSTIPTAION OR DIARRHEA AND NOTIFY OFFICE 05/26/20 025 Discontinued Hospital, Clinic, or Other Facility Administered Medication Ordered Dose Route Frequency Start Date End Date Status triamcinolone acetonide (KENALOG-40) 40 mg/mL injection 40 mgIndications:Nontra umatic incomplete tear of left rotator cuff 40 mg Once PRN Procedure 05/10/2025 05/10/2025 Ended Active Problems Problem Noted Date Diagnosed Date Acute lateral meniscus tear of right knee 2023 Encounters Date Type Department Care Team Description 05/10/2025 9:45 AM EDT Office Visit [facility] - [place] [address] [facility] [address] [place] [address] Oscar Rowland MD Nontraumatic incomplete tear of left rotator cuff (Primary Dx) 02/15/2025 2:00 PM EDT Treatment [facility] Occupational Therapy [address] [phone] Margarita Lowe, OT Nontraumatic incomplete tear of left rotator cuff (Primary Dx) 02/08/2025 2:30 PM EDT Treatment [facility] Occupational Therapy [address] [phone] Margarita Lowe, OT Nontraumatic incomplete tear of left rotator cuff (Primary Dx) from Last 3 Months Medical History Medical History Date Comments Malignant neoplasm of colon (CMS/HCC V24, CMS/HCC V28) DX:Malignant neoplasm of col on (HCC) Malignant neoplasm of female breast (CMS/HCC V24, CMS/HCC V28) DX:Malignant neoplasm of fe male breast (HCC) Essential (primary) hypertension DX:Essential (primary) hypertension Social History Tobacco Use Types Packs/Day Years Used Date Smoking Tobacco: Never Assessed Comments Unknown Sex and Gender Information Value Date Recorded Sex Assigned at Not on file Legal Sex Female 9:01 AM EST Gender Identity Not on file Sexual Orientation Not on file Obstetrics History Last Filed Vital Signs Vital Sign Reading Time Taken Comments Blood Pressure - - Pulse - - Temperature - - Respiratory Rate - - Oxygen Saturation - - Inhaled Oxygen Concentration - - Weight 90.7 kg (200 lb) 07/23/2024 10:06 AM EST Height 162.6 cm (5' 4 ) 12/21/2024 3:27 PM EDT Body Mass Index 34.33 07/23/2024 10:06 AM EST Plan of Treatment Health Maintenance Due Date Last Done Comments Colorectal Cancer Screening: Colonoscopy 1964 COVID-19 Vaccine (#1) 02/26/1969 Zoster Vaccines (1 of 2) 02/26/1983 Cervical Cancer Screening: P ap Smear 02/26/1985 Breast Cancer Screening 04/27/2023 04/27/2021 RSV Immunization Adult Patients (1 - Risk 60-74 years 1-dose series) 2024 HIV Screening 05/21/2024 Hepatitis C Screening 05/21/2024 Medicare Annual Wellness Visit 05/21/2024 Social Influencers of Health Screening 05/21/2024 Hypertension/CHF/CAD Annual BMP Blood Test 07/23/2024 Depression Screening 08/12/2024 Influenza Vaccine (#1) 2025 DTaP,Tdap,and Td Vaccines (2 - Td or Tdap) 01/24/2027 01/24/2017 Cholesterol Screening (Lipid Panel) 03/13/2029 03/13/2024, 08/10/2019, 02/17/2019 Pneumococcal Vaccine: 50+ Years Completed 05/06/2025, 08/30/2017 HIB Vaccines Aged Out No longer eligi ble based on patient's age to complete this topic HPV Vaccines Aged Out No longer eligi ble based on patient's age to complete this topic Hepatitis A Vaccines Aged Out No long er eligible based on patient's age to complete this topic Hepatitis B Vaccines Aged Out No long er eligible based on patient's age to complete this topic IPV Vaccines Aged Out No longer eligi ble based on patient's age to complete this topic MMR Vaccines Aged Out No longer eligi ble based on patient's age to complete this topic Meningococcal ACWY Vaccine Aged Out N o longer eligible based on patient's age to complete this topic Meningococcal B Vaccine Aged Out No l onger eligible based on patient's age to complete this topic RSV Immunization Patients Under 20 months Aged Out No longer eligible b ased on patient's age to complete this topic Varicella Vaccines Aged Out No longer eligible based on patient's age to complete this topic Goals Goal Patient Goal Type Associated Problems Recent Progress Patient-Stated? Author OT goals 6 visits General On track( 025 2:20 PM EDT) Margarita Oswald, OT Note: 1> Pt will demo L shldr horiz add at least 20 to reach R axilla when bathing 01/19/25 Met 2. Pt will demo L swatch clerk strength to at least 30# (vs 23# init, vs 50# on R) 02/15/25 MET 3. Pt will return demo approp HEP w/ progressions 02/15/25 MET 4> Pt will trial bed positioing techniques to lessen reports of RUE pain in supine bed 01/19/25 Met Procedures Procedure Name Priority Date/Time Associated Diagnosis Comments [place] ARTHROCENTESIS/ASPI RATION/INJECTION MAJOR JOINT/BURSA W/O U/S GUIDANCE Routine 05/10/2025 9:45 AM EDT Nontraumatic incomplete tear of left rotator cuff from Last 3 Months Results * [place] ARTHROCENTESIS/ASPIRATION/INJECTION MAJOR JOINT/BURSA W/O U/S GUIDANCE (05/10/2025 9:45 AM EDT) Narrative Oscar Rowland MD - 05/10/2025 9:45 AM EDT Oscar [...] MD IN CLINIC/BEDSIDE ORDERABLES Fin al Result from Last 3 Months Insurance MEDICAID - [place] MEDICARE Care Teams Mac Operator Relationship Specialty Start Date End Date Jonas Miller MD [address] [address] PCP - General Internal Medicine 12/24/18
--- OUTSIDE RECORDS SUMMARY | 2025-05-11 11:58 | XMS_ITS | Encounter Summary ---
Author Organization [employer] Address [address] [place] [address] Care Team Providers Care Alternative Energy Engineer Name Role Phone Christal Galeana MD Primary Care Provider [phone] Encounter Details Date Type Department Care Team (Latest Contact Info) Description 01/02/2022 Abstract [facility] CONVERSIONS Dental, Provider, DDS Social History Tobacco [...] Description 06/02/2025 9:30 AM EDT Office Visit [facility] ADULT DENTAL [address] [place] [address] Adam Weiss documented as of this encounter Visit Diagnoses Not on filedocumented in this encounter Care Teams Alternative Energy Engineer Relationship Specialty Start Date End Date Christal Galeana MD [address] [place] [address] PCP - General Family Medicine 02/16/21 documented as of this encounter
--- OUTSIDE RECORDS SUMMARY | 2025-05-11 11:58 | XMS_ITS | Clinical Summary ---
Author Organization [employer] Address [address] [facility] 7t [place] [address] Care Team Providers Care Scientific Systems Analyst Name Role Phone Christal Galeana MD Primary Care Provider [phone] Allergies No known active allergies Medications tamoxifen (Nolvadex) 20 MG chemo tablet 3 Active sacubitril-valsa rtan (Entresto) 97-103 MG tablet Take 1 tablet by mouth. 9 Active melatonin 5 MG tablet Take 1 tablet (5 mg) by mouth at bedtime. 30 tablet 3 3 Active carvedilol (Coreg) 12.5 MG tablet Take 1 tablet (12.5 mg) by mouth with breakfast and with evening meal. 60 tablet 3 4 04/21/20 28 Active Magnesium Oxide -Mg Supplement 400 MG capsule Take 1 capsule orally qhs 30 capsule 11 4 Active cholecalciferol (Vitamin D-3) 125 MCG (5000 UT) capsule Take 1 capsule (125 mcg) by mouth Once per day. 30 capsule 1 4 Active eplerenone (Inspra) 25 MG tablet Take 25 mg by mouth Once per day. 5 09/10/19 26 Active varenicline (Chantix) 1 MG tablet Take 0.5 tablets (0.5 mg) by mouth 2 times daily. 60 tablet 5 07/05/20 25 Active traZODone (Desyrel) 50 MG tablet Take 1 tablet (50 mg) by mouth at bedtime. 30 tablet 3 5 06/05/20 25 Active albuterol 108 (90 Base) MCG/ACT inhalerIndicatio ns:Mild intermittent asthma without complication Inhale 2 puffs every 4 (four) hours if needed for wheezing. 18 g 5 05/06/20 26 Active spironolactone (Aldactone) 25 MG tablet Take 1 tab orally daily 30 tablet 3 4 05/06/20 25 Discontin ued(Thera py completed ) Active Problems Problem Noted Date Diagnosed Date Absence of breast 01/31/2023 Carcinoma of colon ([facility]/HCC) 07/11/2021 Essential hypertension 12/31/2018 Heart failure with reduced e jection fraction, NYHA class III 12/31/2018 Overview (01/31/2023): Patient saw Dr. Wing Dickey, Heart Failure [...] by low HR Breast cancer, right breast ([facility]/HCC) 08/21/2016 Overview (01/31/2023): H/o right 6 mm infiltrating ductal carcinoma [...] - clinically stable. Followed every 6 months. History of colon cancer, stage II 08/21/2016 Overview (01/31/2023): based on the documentation by Dr. Quick [...] - 05/2019; GI scheduled colonoscopy + endoscopy. Encounters Date Type Department Care Team Description 05/07/2025 Patient Outreach [address] [address] Christal Galeana MD Care Coordination (W outreach for [facility] housing search-referral completed ) 05/06/2025 2:15 PM EDT Office Visit [facility] [address] [place] [address] Christal Galeana MD Essential hypertension (Primary Dx); Heart failure with reduced ejection fraction, NYHA class III (CMS/HCC); Malignant neoplasm of right breast in female, estrogen receptor positive, unspecified site of breast (CMS/HCC); Carcinoma of colon (CMS/HCC); Dietary counseling; Exercise counseling; Primary insomnia; Mild intermittent asthma without complication; Encounter for immunization 05/06/2025 Patient Outreach [address] [address] Christal Galeana MD 05/06/2025 Travel 05/05/2025 Telephone [facility] [address] [place] [address] Christal Galeana MD Chart Prep 04/29/2025 Patient Outreach [address] [address] Christal Galeana MD Pre-visit Planning (Pre visit planning LVM ) from Last 3 Months Immunizations Immunization Administration Dates Next Due Pneumococcal Conjugate PCV 20 05/06/2025 Pneumococcal Polysaccharide PPSV23 08/30/2017 Tdap 01/24/2017 Social History Tobacco Use Types Packs/Day Years [...] Orientation Straight 06/11/2022 10 :35 AM EDT Last Filed Vital Signs Vital Sign Reading Time Taken Comments Blood Pressure 100/72 05/06/2025 2:17 PM EDT Pulse 80 05/06/2025 2:17 PM EDT Temperature 36.7 C (98 F) 05/06/2025 2:17 PM EDT Respiratory Rate 20 05/06/2025 2:17 PM EDT Oxygen Saturation 98% 2024 1:23 PM EDT Inhaled Oxygen Concentration - - Weight 85.7 kg (189 lb) 05/06/2025 2:17 PM EDT Height 158.8 cm (5' 2.5 ) 05/06/2025 2:17 PM EDT Body Mass Index 34.02 05/06/2025 2:17 PM EDT Plan of Treatment Upcoming Encounters Date Type Department Care Team (Late st Contact Info) Description 06/02/2025 9:30 AM EDT Office Visit [facility] AD[facility] [address] [place] [address] Adam Weiss Health Maintenance Due Date Last Done Comments CT Colonography 1964 Colonoscopy 1964 Colorectal Cancer Screening 1964 FIT DNA/Cologuard 1964 FIT 1964 FOBT 1965 HIV Screening 1965 Sigmoidoscopy 1964 Hepatitis C Screening 02/26/1982 Pap Smear 02/26/1985 Cervical Cancer Screening 02/26/1994 HPV/Cotest 02/26/1994 Zoster Vaccines (1 of 2) 02/26/2014 Mammogram 04/27/2022 04/27/2021 RSV Patients and Patients Aged 60 years or older (1 - Risk 60-74 years 1-dose series) 2024 COVID-19 Vaccine (1 - 2023-2 5 season) 2025 Influenza Vaccine (#1) 2025 Depression Monitoring 11/03/2025 05/06/2025 , 05/06/2025 Alcohol/Substance Use Screening 05/06/2026 05/06/2025 Disability Screening 05/06/2026 05/06/2025 SDOH Screening 05/06/2026 05/06/2025 Tobacco Screening 05/06/2026 05/06/2025 DTaP/Tdap/Td Vaccines (2 - T d or Tdap) 01/24/2027 01/24/2017 Lipid Panel 03/13/2029 03/13/2024 Pneumococcal Vaccine: 50+ Years Completed 05/06/2025, 08/30/2017 [...] patient's age to complete this topic Meningococcal Vaccine Aged Out No shawn angie eligible based on patient's age to complete this topic RSV under 20 months Aged Out No longe r eligible based on patient's age to complete this topic Rotavirus Vaccines Aged Out No longer eligible based on patient's age to complete this topic Procedures Procedure Name Priority Date/Time Associated Diagnosis Comments LIPID PANEL, STANDARD Routine 03/13/2024 10:14 AM EDT Vitamin D deficiency Hair loss technician terminal and repeater (current) use of aromatase inhibitors Essential hypertension MAMMOGRAM GENERIC Routine 04/27/2021 2:0 0 PM EDT from Last 3 Months or Most Recently Relevant to Health Maintenance Results * (ABNORMAL) Lipid Panel, Standard (03/13/2024 10:14 AM EDT) Triglycerides 129 <150 mg/dL [facility] Comment:Desirable Triglyceri de: less than 150 mg/dLBorderline High Triglyceride 150-199 mg/dLHigh Triglyceride: 200-499 mg/dLVery High Triglyceride: greater than or equal to 5OO mg/dL Cholesterol 169 <200 mg/dL [facility] Comment:Desirable Cholestero l: less than 200 mg/dLBorderline High Cholesterol: 200-239 mg/dLHigh Cholesterol: greater than 239 mg/dL LDL Cholesterol Calculated 115(H) <100 mg/dL [facility] Comment:Desirable LDL: less than 100 mg/dLNear Optimal/Above Optimal LDL: 110- 129 mg/dLBorderline High LDL: 130-159 mg/dLHigh LDL: 160-189 mg/dLVery High LDL: greater than or equal to 190 mg/dL HDL Cholesterol 29(L) >40 mg/dL [facility] Comment:Desirable HDL: great er than 40 mg/dL Note: This HDL assay may give artificially low results in patients with liver disease. Blood Venous blood specimen / Unknown 03/13/2024 10:14 AM EDT 03/13/2024 1:49 PM EDT Christal Galeana MD LAB BLOOD ORDERABLES Final Re sult [facility] [address] [place] [address] [phone] * Mammography Report 1 (04/27/2021 2:00 PM EDT) Anatomical Region Laterality Modality Breast Bilateral Mammography 04/27/2021 2:00 PM EDT Narrative 04/28/2021 9:50 AM EDT Refer to the Notes tab for result details [facility] Procedure: Mammography Report 1 Procedure Note Provider, MD Tanya - 11/04/2022 Refer to the Notes tab for result details [facility] Procedure: Mammography Report 1 Christal Galeana MD IMG BI PROCEDURES Final Resul t from Last 3 Months or Most Recently Relevant to Health Maintenance Insurance [place] [address] [place] [id number] [facility] STAND ADULT Care Teams Scientific Systems Analyst Relationship Specialty Start Date End Date Christal Galeana MD [address] [place] [address] [place] [address] PCP - General Family Medicine 02/16/21
--- OUTSIDE RECORDS SUMMARY | 2025-05-11 11:58 | XMS_ITS | Encounter Summary ---
Author Organization [employer] Address [address] [place] [address] Care Team Providers Care Physician Practice Consultant Name Role Phone Christal Galeana MD Primary Care Provider [phone] Reason for Visit * Reason Comments Care Coordination CHW outreach for SDO H housing search-referral completed Encounter Details Date Type Department Care Team (Latest Contact Info) Description 05/07/2025 Patient Outreach [facility] [address] [place] [address] Christal Galeana MD [address] [place] [address] Care Coordination (CHW outreach for SDOH housing search-referral completed ) Social History Tobacco Use Types Packs/Day Years [...] your housing situation today? I have channing edmondson 05/06/[address] you [...] AM EDT documented as of this encounter Progress Notes * Fred Lopez - 05/07/2025 9:23 AM EDT CHW Fred Lopez, placed outbound call to patient for assistance with SDOH as a referral was received by the provider. Patient's name and were confirmed. Patient screened positive for the following SDOH housing insecurities. Patient states is staying with her friend but is searching for her own apartment. CHW referral patient to the list of application mail out to her address on file. Patient verbalizes understanding, and able to agree with plan to follow up herself. Patient educated on extended clinic hours on Mondays through Wednesdays, and Walk-In Urgent Care Located in [facility]. Patient provided with after-hours line for [facility], , which offer night time triage service and option to transfer to sanitation manager provider if needed. documented in this encounter Plan of Treatment Upcoming Encounters Date Type Department Care Team (Late st Contact Info) Description 06/02/2025 9:30 AM EDT Office Visit [facility] [address] [place] [address] Adam Weiss documented as of this encounter Visit Diagnoses Not on filedocumented in this encounter Additional Health Concerns Assessment Noted Time PHQ-9 Depression Total Score: 12 05/06/ 025 2:38 PM EDT documented as of this encounter Care Teams Physician Practice Consultant Relationship Specialty Start Date End Date Christal Galeana MD [address] [place] [address] PCP - General Family Medicine 02/16/21 documented as of this encounter
--- OUTSIDE RECORDS SUMMARY | 2025-05-11 11:58 | XMS_ITS | Encounter Summary ---
Author Organization [employer] Address [address] [facility] 7t [place] [address] Care Team Providers Care Light Adjuster Name Role Phone Christal Galeana MD Primary Care Provider [phone] Encounter Details Date Type Department Care Team ([facility] st Contact Info) Description 05/06/2025 Patient Outreach [facility] [address] [place] [address] Christal Galeana MD [address] [place], [place] [id number] Social History Tobacco Use Types Packs/Day Years [...] Description 06/02/2025 9:30 AM EDT Office Visit [facility] ADULT DENTAL [address] [place] [address] Adam Weiss documented as of this encounter Visit Diagnoses Not on filedocumented in this encounter Additional Health Concerns Assessment Noted Time PHQ-9 Depression Total Score: 025 2:38 PM EDT documented as of this encounter Care Teams Light Adjuster Relationship Specialty Start Date End Date Christal Galeana MD [address] [place] [address] PCP - General Family Medicine 02/16/21 documented as of this encounter
[2025-05-11 14:16] LABS: MANUAL DIFF FLAG NO
[2025-05-11 14:21] LABS: Hematocrit 40.3 % (37.0-47.0); Hemoglobin 13.3 g/dl (12.0-16.0); Imm Gran Abs Auto 0.03 X10*3/uL (0.00-0.03); Imm Gran Pct Auto 0.4 % (0.0-0.4); Lymphocytes Absolute Auto 1.8 X10*3/uL (1.2-4.9); Mean Corpuscular HGB Conc 33.0 g/dl (31.0-35.0); Mean Corpuscular Hemoglobin 29.4 pg (27.0-33.0); Mean Corpuscular Volume 89.2 fL (80.0-98.0); NRBC Abs Auto 0.000 X10*3/uL (0.0-0.012); NRBC Pct Auto 0.0 /100WBC (0.0-0.2); Platelet Count 247 X10*3/uL (160-400); Red Blood Count 4.52 X10*6/uL (4.20-5.50); White Blood Count 6.9 X10*3/uL (4.8-10.8)
[2025-05-11 15:01] LABS: Microalbum/Creatinine Ratio Ur 6.1 ug/mg cr (<30)
[2025-05-11 16:02] LABS: Folate 12.9 ng/mL (> or = 4.0); Vitamin B12 534 pg/mL (200-900)
[2025-05-11 16:39] LABS: Alanine Aminotransferase 21 U/L (0-31); Albumin Level 4.5 g/dL (3.5-5.0); Anion Gap 13 (12-20); Aspartate Amino Transferase 26 U/L (5-31); Blood Urea Nitrogen 13 mg/dL (9-16); Calcium 9.5 mg/dL (8.4-10.2); Carbon Dioxide 23 mmol/L (22-29); Chloride 109 mmol/L (96-108); Cholesterol 179 mg/dL (<200); Estimated Glomerular Filt Rate > 60; Potassium 4.0 mmol/L (3.3-5.1); Sodium 141 mmol/L (135-145); Total Protein 7.6 g/dL (6.5-8.0); Triglycerides 100 mg/dL (<150)
[2025-05-11 16:40] LABS: Alkaline Phosphatase 76 U/L (39-117); HDL Cholesterol 42 mg/dL (>40)
== END 2025-05-11 10:40 | disposition home or self-care (01) ==
LOC: HO.CHCLDS 10:39
PROVIDERS: Visit Provider Pediatrics
DX: I11.0 Hypertensive heart disease with heart failure (principal); I50.20 Unspecified systolic (congestive) heart failure; C50.911 Malignant neoplasm of unspecified site of right female breast; C18.9 Malignant neoplasm of colon, unspecified; Z13.21 Encounter for screening for nutritional disorder; Z17.0 Estrogen receptor positive status [ER+]
CPT/HCPCS: 36415; 80048; 80061; 80076; 82043; 82306; 82570; 82607; 82746; 84443; 85025